=== PATIENT | female | born 1960 | race Caucasian/White ===

== ENCOUNTER 2019-02-10 09:17 | Day surgery (SDC) | payer BC ==
[2019-02-10] MEDS ORDERED: Ketorolac 30 MG/ML SDV IVPUSH ONE (09:18)
[2019-02-10] MEDS ORDERED: Ondansetron 4 MG/2 ML SDV IVPUSH ONE (09:18)
[2019-02-10] MEDS ORDERED: Dexamethasone 4 MG/ML 5 ML MDV IVPUSH ONE (09:18)
[2019-02-10] MEDS ORDERED: Succinylcholine 200 MG/10 ML MDV IV ONE (09:18)
[2019-02-10] MEDS ORDERED: fentaNYL 100 MCG/2 ML SDV IV ONE (09:18)
[2019-02-10] MEDS ORDERED: Lidocaine 2% 100 MG/5 ML Syringe IVPUSH ONE (09:18)
[2019-02-10] MEDS ORDERED: Propofol 200 MG/20 ML SDV IV ONE (09:18)
[2019-02-10] MEDS ORDERED: Lactated Ringers 1,000 ML IV ONE (09:18)
[2019-02-10] MEDS ORDERED: Rocuronium 50 MG/5 ML Vial IV ONE (09:18)
[2019-02-10] MEDS ORDERED: Midazolam 1 MG/ML 2 ML SDV IV ONE (09:18)
[2019-02-10] MEDS ORDERED: Acetaminophen 500 MG Tab PO ONE (10:30)
[2019-02-10] MEDS ORDERED: Sodium Chloride 0.9% 10 ML Syringe FLUSH PRN (10:30)
[2019-02-10] MEDS ORDERED: Lactated Ringers 1,000 ML IV SCH (10:30)
[2019-02-10] MEDS ORDERED: Gabapentin 300 MG Cap PO ONE (10:30)
[2019-02-10] MEDS ORDERED: EPINEPHrine 1 MG/ML SDV ONE (11:01)
[2019-02-10] MEDS ORDERED: Gentamicin 40 MG/ML 2 ML Vial ONE (11:01)
[2019-02-10] MEDS ORDERED: Bupivacaine 0.5%/EPINEPHrine 1:200,000 50 ML MDV INJECT ONE (11:02)
--- NOTE | 2019-02-10 11:38 | PCM.OPNOTE ---
- General Post-Op/Procedure Note Date of Surgery/Procedure: 02/10/19 Operative Procedure(s): left knee arthroscopy. partial medial and lateral menisectomy. patellar, tibial, and femoral chondroplasty Pre Op Diagnosis: medial and lateral meniscus tear Post-Op Diagnosis: Same Anesthesia Technique: General ET Tube Primary Surgeon: Chris Diggs Anesthesia Provider: Margie Sears EBL in mLs: 5 Complications: None Condition: Good
[2019-02-10] MEDS ORDERED: Acetaminophen/oxyCODONE 325-5 MG Tab PO PRN (13:12)
[2019-02-10] MEDS ORDERED: Ketorolac 30 MG/ML SDV IVPUSH PRN (13:14)
[2019-02-10 14:41] VITALS: BP 152/88; PULSE 76
--- NOTE | 2019-02-10 17:12 | OR ---
DATE OF OPERATION: 02/10/2019 SURGEON: Chris Diggs DO PREOPERATIVE DIAGNOSES: 1. Left knee lateral meniscus and medial meniscus tears. 2. Osteochondral defect, femoral condyle. POSTOPERATIVE DIAGNOSES: 1. Left knee lateral meniscus and medial meniscus tears. 2. Osteochondral defect, femoral condyle. 3. Chondromalacia, patella. 4. Chondromalacia, tibia and femur. PROCEDURES: 1. Left knee arthroscopy. 2. Partial medial and lateral meniscectomy. 3. Chondroplasty, patella, femur, and tibia. ANESTHESIA: General endotracheal intubation. FLUID: Lactated Ringer solution. ESTIMATED BLOOD LOSS: 5 mL. COMPLICATIONS: None. SPECIMEN: None. DISCHARGE DISPOSITION: Stable to PACU. HISTORY AND INDICATIONS FOR THE PROCEDURE: The patient was seen preoperatively in clinic. We did try nonoperative treatment, but she was in a great deal of pain. We did obtain preoperative imaging which confirmed medial and lateral meniscus tears. Risks and benefits of the procedure were explained to the patient. Informed consent was obtained. DETAILS OF PROCEDURE: The patient was seen preoperatively by myself and the anesthesia staff in the preoperative holding area where the operative site was marked. She was brought to the operative suite by Anesthesia staff where general anesthesia was administered. The right lower extremity was placed into a stirrup. The left lower extremity was placed into a thigh keys with a gel pad. A well-padded tourniquet was placed on the left thigh. The left lower extremity was then prepped and draped in a sterile manner. Time-out was called identifying the correct patient, correct procedure, and the correct site and antibiotics were begun within appropriate period of time. The left lower extremity was exsanguinated. Tourniquet was raised to 300 mmHg and taken down after closure. Lateral portal was first made and then the trocar was used to enter the joint and the knee was extended. We then inserted the camera. The patellofemoral space had considerable synovitis as well as grade 4 chondromalacia on the patella. Both gutters had evidence of synovitis present. I did use a lateral portal and then inserted my shaver and removed part of the infrapatellar fat pad and some synovitis in the medial and lateral compartments which did aid in visualization. The medial meniscus had a small posterior tear which were shaved and then used the ablation unit to stabilize it. The lateral meniscus had a large tear going from 11 to 4 o'clock. It had both radial and horizontal components. I spent a bit of time on this using the shaver to remove the diseased portions of the meniscus and then used an ablation unit to stabilize it. I then used the ablation unit on the distal femoral condyle in the lateral compartment as well as the tibia for grade 4 chondromalacia on both of these surfaces. The ACL was in good condition. Having accomplished the goals, I removed all of our instruments and then injected local anesthetic at the portals and into the knee and closed with [id number] interrupted 3-0 nylon sutures followed by Betadine-soaked Adaptic, sponges, and an Joseph wrap. The tourniquet was let down after closure with nylon. The patient was allowed to awaken from general anesthesia and taken to the PACU in stable condition. /[id number] JOJO/MISTY
== END 2019-02-10 14:00 | disposition home or self-care (01) ==
LOC: FB.SDS 09:17
PROVIDERS: ATTEND Orthopaedic Surgery
DX: S83.282A Other tear of lateral meniscus, current injury, left knee, initial encounter (principal); S83.242A Other tear of medial meniscus, current injury, left knee, initial encounter; M21.862 Other specified acquired deformities of left lower leg; M94.262 Chondromalacia, left knee; J44.9 Chronic obstructive pulmonary disease, unspecified; K21.9 Gastro-esophageal reflux disease without esophagitis; I10 Essential (primary) hypertension; E78.00 Pure hypercholesterolemia, unspecified
CPT/HCPCS: 29880; A9270; J0171; J0330; J0690; J1100; J1580; J1885; J2001; J2250; J2405; J2704; J3010; J3490; J7030; J7120

== ENCOUNTER 2019-10-03 10:13 | Emergency (ER) | payer BC ==
--- NOTE | 2019-10-03 10:24 | EDM.PDOC ---
ED HPI GENERAL MEDICAL PROBLEM - General Stated Complaint: TROUBLE BREATHING Time Seen by Provider: 10/03/19 11:29 Source of Information: Reports: Patient, RN Notes Reviewed History Limitations: Reports: No Limitations - History of Present Illness INITIAL COMMENTS - FREE TEXT/NARRATIVE: 59 yo F who presented to the ER with h/o worsening sob and chest congestion that started earlier today. Denied any h/o fever, cough. nO CHEST PAIN. Denied any sinus congestion. No h/o exposure to any COVID 19.No h/o recent travels. Patient denies any nausea, vomiting or abdominal pain. No Leg swelling. Presented to the ER due to worsening symptoms. Onset: Today Duration: Day(s): (started early today and seems to be getting worse), Getting Worse - Related Data Allergies Allergy/AdvReac Type Severity Reaction Status Date / Time albuterol Allergy Other Verified 02/09/19 14:30 Home Meds: Home Meds Aspirin 81 mg PO DAILY 02/09/19 [History] Lisinopril/Hydrochlorothiazide [Lisinopril-Hctz 20-12.5 mg Tab] 1 each PO DAILY 02/09/19 [History] atorvaSTATin Calcium [Atorvastatin Calcium] 20 mg PO DAILY 02/09/19 [History] Acetaminophen [Arthritis Pain] 1,300 mg PO ASDIRECTED 02/10/19 [History] Amoxicillin/Potassium Clav [Augmentin 875-125 Tablet] 1 ea PO BID 02/10/19 [ History] Ascorbic Acid [Vitamin C] 1,000 mg PO DAILY 02/10/19 [History] Multivitamin with Minerals [Multiple Vitamin] 1 mg PO DAILY 02/10/19 [History] diphenhydrAMINE HCL [Benadryl Allergy] 25 mg PO ASDIRECTED PRN 02/10/19 [History ] Azithromycin [Zithromax] 250 mg PO DAILY #6 tab 10/03/19 [Rx] predniSONE 40 mg PO WITHBREAKFAST #5 tab 10/03/19 [Rx] Past Medical History HEENT History: Reports: Impaired Vision, Sinusitis, Other (See Below) Cardiovascular History: Reports: High Cholesterol, Hypertension, NC Respiratory History: Reports: COPD Gastrointestinal History: Reports: Colon Polyp, GERD Genitourinary History: Reports: UTI, Recurrent Other Genitourinary History: DYSURIA 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 Other Musculoskeletal History: KNEE PAIN - Infectious Disease History Infectious Disease History: Reports: None - Past Surgical History HEENT Surgical History: Reports: Other (See Below) Other HEENT Surgeries/Procedures: NODULE REMOVED FROM VOICE BOX/VOCAL CHORDS Other Cardiovascular Surgeries/Procedures: NC PER HX. PT. DENIES GI Surgical History: Reports: Colonoscopy Female Surgical History: Reports: Hysterectomy, Salpingo-Oophorectomy, Tubal Ligation Social & Family History - Family History Family Medical History: Unobtainable ED ROS GENERAL - Review of Systems Review Of Systems: See Below Constitutional: Reports: No Symptoms HEENT: Reports: No Symptoms Respiratory: Reports: Shortness of Breath, Other (chest congestion) Cardiovascular: Reports: No Symptoms Endocrine: Reports: No Symptoms GI/Abdominal: Reports: No Symptoms : Reports: No Symptoms Musculoskeletal: Reports: No Symptoms Skin: Reports: No Symptoms Neurological: Reports: No Symptoms Psychiatric: Reports: No Symptoms Hematologic/Lymphatic: Reports: No Symptoms Immunologic: Reports: No Symptoms ED EXAM, GENERAL - Physical Exam Exam: See Below Exam Limited By: No Limitations General Appearance: Alert, WD/WN, No Apparent Distress Eye Exam: Bilateral Eye: EOMI, PERRL Ears: Normal External Exam, Normal Canal, Hearing Grossly Normal Ear Exam: Bilateral Ear: TM normal Nose: Normal Inspection, Normal Mucosa, No Blood Throat/Mouth: Normal Inspection, Normal Lips, Normal Teeth, Normal Gums, Normal Oropharynx Head: Atraumatic, Normocephalic Neck: Normal Inspection, Supple, Non-Tender Respiratory/Chest: No Respiratory Distress, Lungs Clear, Normal Breath Sounds Cardiovascular: Normal Peripheral Pulses, Regular Rate, Rhythm, No Edema GI/Abdominal: Normal Bowel Sounds, Soft, Non-Tender, No Organomegaly, No Distention Extremities: Normal Inspection, Normal Range of Motion, Non-Tender, No Pedal Edema Neurological: Alert, Oriented, CN II-XII Intact, Normal Cognition, Normal Gait Skin Exam: Warm Course - Vital Signs Last Recorded V/S: Last Vital Signs Temp 36.2 C 10/03/19 10:13 Pulse 106 H 10/03/19 10:13 Resp 18 10/03/19 10:13 BP 144/105 H 10/03/19 10:13 Pulse Ox 99 10/03/19 10:13 - Orders/Labs/Meds Orders: Active Orders 24 hr Category Date Time Status Ang Chest [CT] Stat Exams 10/03/19 12:57 Taken Labs: Laboratory Tests 10/03/19 10/03/19 10/03/19 Range/Units 10:51 10:51 10:51 WBC 6.2 (4.5-12.0) X10-3/uL RBC 4.48 (3.23-5.20) x10(6)uL Hgb 13.9 (11.5-15.5) g/dL Hct 42.5 (30.0-51.3) % MCV 94.8 (80-96) fL MCH 31.0 (27.7-33.6) pg MCHC 32.7 (32.2-35.4) g/dL RDW 12.5 (11.5-15.5) % Plt Count 305 (125-369) X10(3)uL MPV 7.4 (7.4-10.4) fL Neut % (Auto) 69.9 (46-82) % Lymph % (Auto) 22.5 (13-37) % Jasper % (Auto) 5.3 (4-12) % Eos % (Auto) 2 (1.0-5.0) % Baso % (Auto) 1 (0-2) % Neut # (Auto) 4.4 (1.6-8.3) # Lymph # (Auto) 1.4 (0.6-5.0) # Jasper # (Auto) 0.3 (0.0-1.3) # Eos # (Auto) 0.1 (0.0-0.8) # Baso # (Auto) 0.0 (0.0-0.2) # D-Dimer, Quantitative (0.0-0.59) mg/LFEU Sodium 139 (135-145) mmol/L Potassium 3.6 (3.5-5.3) mmol/L Chloride 103 (100-110) mmol/L Carbon Dioxide 25 (21-32) mmol/L BUN 14 (7-18) mg/dL Creatinine 0.8 (0.55-1.02) mg/dL Est Cr Clr Drug Dosing 77.18 mL/min Estimated GFR (MDRD) > 60 (>60) BUN/Creatinine Ratio 17.5 (9-20) Glucose 189 H (80-116) mg/dL Calcium 9.5 (8.6-10.2) mg/dL Total Bilirubin 0.5 (0.1-1.3) mg/dL AST 24 (5-25) IU/L ALT 43 H (12-36) U/L Alkaline Phosphatase 113 H (56-112) IU/L Troponin I 6.5 (4.0-60.3) pg/mL C-Reactive Protein (0.5-0.9) mg/dL NT-Pro-B Natriuret Pep (<=125) pg/mL Total Protein 7.5 (6.0-8.0) g/dL Albumin 3.7 (3.2-4.6) g/dL Globulin 3.8 g/dL Albumin/Globulin Ratio 1.0 10/03/19 10/03/19 Range/Units 10:51 10:51 WBC (4.5-12.0) X10-3/uL RBC (3.23-5.20) x10(6)uL Hgb (11.5-15.5) g/dL Hct (30.0-51.3) % MCV (80-96) fL MCH (27.7-33.6) pg MCHC (32.2-35.4) g/dL RDW (11.5-15.5) % Plt Count (125-369) X10(3)uL MPV (7.4-10.4) fL Neut % (Auto) (46-82) % Lymph % (Auto) (13-37) % Jasper % (Auto) (4-12) % Eos % (Auto) (1.0-5.0) % Baso % (Auto) (0-2) % Neut # (Auto) (1.6-8.3) # Lymph # (Auto) (0.6-5.0) # Jasper # (Auto) (0.0-1.3) # Eos # (Auto) (0.0-0.8) # Baso # (Auto) (0.0-0.2) # D-Dimer, Quantitative 0.71 H (0.0-0.59) mg/LFEU Sodium (135-145) mmol/L Potassium (3.5-5.3) mmol/L Chloride (100-110) mmol/L Carbon Dioxide (21-32) mmol/L BUN (7-18) mg/dL Creatinine (0.55-1.02) mg/dL Est Cr Clr Drug Dosing mL/min Estimated GFR (MDRD) (>60) BUN/Creatinine Ratio (9-20) Glucose (80-116) mg/dL Calcium (8.6-10.2) mg/dL Total Bilirubin (0.1-1.3) mg/dL AST (5-25) IU/L ALT (12-36) U/L Alkaline Phosphatase (56-112) IU/L Troponin I (4.0-60.3) pg/mL C-Reactive Protein 1.1 H (0.5-0.9) mg/dL NT-Pro-B Natriuret Pep 36 (<=125) pg/mL Total Protein (6.0-8.0) g/dL Albumin (3.2-4.6) g/dL Globulin g/dL Albumin/Globulin Ratio Meds: Medications Discontinued Medications Generic Name Dose Route Start Last Admin Trade Name Jose PRN Reason Stop Dose Admin Iopamidol 100 ml 10/03/19 12:20 10/03/19 12:38 Isovue-370 (76%) IV 10/03/19 12:21 90 ml ONETIME ONE Administration Departure - Departure Time of Disposition: 13:23 Disposition: Home, Self-Care 01 Condition: Good Clinical Impression: Pneumonia, Bronchitis Prescriptions: Azithromycin [Zithromax] 250 mg PO DAILY #6 tab predniSONE 40 mg PO WITHBREAKFAST #5 tab Instructions: Azithromycin tablets, Prednisone tablets, Acute Bronchitis, Adult Referrals: Armando Moore MD [Primary Care Provider] - Forms: ED Department Discharge Additional Instructions: Follow with PCP Return if symptoms worsen Call your Physician or Return to Emergency Department if: * Your condition worsens in any way. * You develop fever greater than 100.4. * You have vomitting that does not stop with medications. * You have pain that is not controlled with medications. Sepsis Event Note - Focused Exam Vital Signs: Vital Signs Temp Pulse Resp BP Pulse Ox 10/03/19 10:13 36.2 C 106 H 18 144/105 H 99 Date Exam was Performed: 10/03/19 Time Exam was Performed: 13:40 - Problem List & Annotations (1) Pneumonia SNOMED Code(s): 073029601 Code(s): J18.9 - PNEUMONIA, UNSPECIFIED ORGANISM Status: Acute Current Visit: Yes (2) Bronchitis SNOMED Code(s): 10610187 Code(s): J40 - BRONCHITIS, NOT SPECIFIED ACUTE OR CHRONIC Status: Acute Current Visit: Yes - My Orders Last 24 Hours: My Active Orders 10/03/19 12:57 Ang Chest [CT] Stat - Assessment/Plan Last 24 Hours: My Active Orders 10/03/19 12:57 Ang Chest [CT] Stat
[2019-10-03] MEDS ORDERED: Iopamidol 755 Mg/ML 100 ML Bottle IV ONE (12:20)
--- NOTE | 2019-10-03 13:33 | CR ---
INDICATION: Short of breath. CHEST TWO VIEWS: PA and lateral views of the chest 10/03/2019-no comparisons. The heart appeared normal in size transversely, but showed evidence of left ventricular enlargement on the lateral view. The aorta is slightly tortuous with some calcification in the arch. Flattened diaphragms leads, prominent AV diameter and hyperaeration suggests COPD. The density at the left cardiac margin may represent unusual epicardial fat pad. A small neoplasm is difficult to exclude in that area however. If old films are available for comparison, they may be helpful. Bony structures appear to be grossly intact. Evidence of exogenous obesity is noted. IMPRESSION: 1. No definite acute process. 2. COPD. 3. ASHD with LVE. 4. Exogenous obesity. 5. Cannot exclude a small nodular density at the left heart border-old films may be helpful for further evaluation. If not old films are available for comparison, either follow-up chest x-rays or possibly CT without and with IV contrast may be helpful. MTDD
[2019-10-03 14:25] VITALS: BP 141/89; PULSE 80
--- NOTE | 2019-10-03 14:32 | CT ---
INDICATION: Short of breath. COMPUTERIZED TOMOGRAPHY ANGIOGRAPHY OF THE CHEST WITH CONTRAST: Spiral 1.25 mm axial sections were obtained through the chest with 90 cc Isovue 370 at 3 cc per second with sagittal and coronal reconstructions, 10/03/2019 and compared with 08/11/12. Total exam DLP was 1030.42 mGy-cm. The heart appears to be at the upper limits of normal in size. No mediastinal mass was identified. Mediastinal lymphadenopathy is mild and nonspecific. The upper abdomen included on the study suggested somewhat diminished density of the liver which may be on the basis of fatty liver, but should be correlated clinically. The upper abdominal included the study was unremarkable. A focal area of consolidation and/or atelectasis is suggested in the lingula, this may be on the basis of pneumonia and should be correlated clinically. It may be on the basis of fibrosis as well. Heavy markings in the middle lobe and left lower lobe at the diaphragm suggest mild degree of pulmonary fibrosis. No evidence of pulmonary emboli could be identified. IMPRESSION: 1. No evidence of pulmonary emboli. 2. Focal area of infiltrate and/or atelectasis at the lingula with some very minimal similar change at the middle lobe, possibly fibrotic in nature, although minimal pneumonia and/or atelectasis may be present, especially in the lingula. 3. Slight loss of vertebral body volume midthoracic levels x2, compatible with previous minimal compressions of indeterminate age. Report was called to Dr. Peck at [address] [facility] [place]
== END 2019-10-03 13:35 | disposition home or self-care (01) ==
LOC: FB.ED 10:13
DX: J18.9 Pneumonia, unspecified organism (principal); J40 Bronchitis, not specified as acute or chronic; E78.00 Pure hypercholesterolemia, unspecified; I10 Essential (primary) hypertension; I25.2 Old myocardial infarction; J44.9 Chronic obstructive pulmonary disease, unspecified; Z88.8 Allergy status to other drugs, medicaments and biological substances; Z79.82 Long term (current) use of aspirin; Z79.899 Other long term (current) drug therapy
CPT/HCPCS: 36415; 71046; 71275; 80053; 83880; 84484; 85025; 85379; 86140; 99285; Q9967

== ENCOUNTER 2021-10-07 08:33 | Day surgery (SDC) | payer BC ==
[~2021-10-07 08:33] MED LIST: Lactated Ringers 1,000 ML IV SCH; Sodium Chloride 0.9% 10 ML Syringe FLUSH PRN
[2021-10-07] MEDS ORDERED: Propofol 200 MG/20 ML SDV IV ONE (08:34)
[2021-10-07 11:13] VITALS: BP 129/85; PULSE 68
== END 2021-10-07 11:00 | disposition home or self-care (01) ==
LOC: FB.SDS 08:33
PROVIDERS: ATTEND Surgery
DX: Z12.11 Encounter for screening for malignant neoplasm of colon (principal); K62.1 Rectal polyp; K63.5 Polyp of colon; J44.9 Chronic obstructive pulmonary disease, unspecified; E66.01 Morbid (severe) obesity due to excess calories; M79.7 Fibromyalgia; K21.9 Gastro-esophageal reflux disease without esophagitis; Z88.8 Allergy status to other drugs, medicaments and biological substances; Z79.84 Long term (current) use of oral hypoglycemic drugs; Z79.51 Long term (current) use of inhaled steroids; Z87.891 Personal history of nicotine dependence; Z86.010 Personal history of colon polyps; Z98.890 Other specified postprocedural states; Z68.41 Body mass index [BMI] 40.0-44.9, adult
CPT/HCPCS: 00811; 45384; 45385; 82947; 88305; J2704; J7120

== ENCOUNTER 2024-06-08 23:03 | Emergency (ER) | payer MEDICARE, OTHER ==
[2024-06-08 23:39] LABS: BASOPHILS ABSOLUTE AUTO 0.1 x10-3/uL (0.0-0.1); BASOPHILS PERCENT AUTO 1.5 % (0.2-1.5); EOSINOPHILS ABSOLUTE AUTO 0.2 x10-3/uL (0.0-0.8); EOSINOPHILS PERCENT AUTO 3.1 % (0.6-8.1); HEMATOCRIT 40.9 % (34.2-48.2); LYMPHOCYTES ABSOLUTE AUTO 1.6 x10-3/uL (1.0-4.4); MEAN CORPUSCULAR HGB CONC 34.2 g/dL (31.9-34.8); MEAN CORPUSCULAR VOLUME 93.7 fL (76.7-100.5); MEAN PLATELET VOLUME 7.7 fL (7.1-12.4); MONOCYTES ABSOLUTE AUTO 0.5 x10-3/uL (0.3-1.0); MONOCYTES PERCENT AUTO 8.5 % (4.4-15.7); NEUTROPHILS ABSOLUTE AUTO 3.3 x10-3/uL (1.5-6.3); NEUTROPHILS PERCENT AUTO 57.9 % (30.8-76.2); PLATELET COUNT,PLT 285 x10(3)uL (151-488); RED BLOOD CELL COUNT 4.37 x10(6)uL (3.60-5.20); RED CELL DISTRIBUTION WIDTH 13.1 % (12.3-16.5); WHITE BLOOD CELL COUNT,WBC 5.7 x10-3/uL (3.0-10.3)
[2024-06-08 23:48] LABS: INR 0.93 (1.00-1.24); PROTHROMBIN TIME 9.8 sec (9.0-11.1)
[2024-06-08] MEDS: LORazepam 2 MG/ML SDV IVPUSH ONE (23:51)
[2024-06-08 23:57] LABS: A/G RATIO 0.8; ALANINE AMINOTRANSFERASE,ALT 41 U/L (12-36); ALBUMIN 3.2 g/dL (3.2-4.6); ALKALINE PHOSPHATASE 95 IU/L (56-112); ASPARTATE AMNIOTRANSFERASE,AST 24 IU/L (5-25); BILIRUBIN TOTAL 0.3 mg/dL (0.1-1.3); BLOOD UREA NITROGEN,BUN 13 mg/dL (7-18); BUN/CREATININE RATIO 14.4 (9-20); CALCIUM 8.9 mg/dL (8.6-10.2); CARBON DIOXIDE,CO2 25 mmol/L (21-32); CHLORIDE,CL 101 mmol/L (100-110); CREATINE KINASE,CK 99 IU/L (60-160); CREATININE 0.9 mg/dL (0.55-1.02); EST CRCL DRUG DOSING (CG) 62.86 mL/min; ESTIMATED GFR 71 mL/min (>60); GLUCOSE RANDOM 188 mg/dL (80-116); POTASSIUM,K 3.6 mmol/L (3.5-5.3); PROTEIN TOTAL,TP 7.3 g/dL (6.0-8.0); SODIUM,NA 136 mmol/L (135-145)
[2024-06-09] MEDS: Iopamidol 755 Mg/ML 100 ML Bottle IV SCH (01:29)
[2024-06-09 03:06] VITALS: BP 156/75; PULSE 97
== END 2024-06-09 03:00 | disposition home or self-care (01) ==
LOC: FB.ED 23:03
DX: R06.02 Shortness of breath (principal); I10 Essential (primary) hypertension; I25.2 Old myocardial infarction; E78.00 Pure hypercholesterolemia, unspecified; J44.9 Chronic obstructive pulmonary disease, unspecified; Z90.710 Acquired absence of both cervix and uterus; Z88.8 Allergy status to other drugs, medicaments and biological substances; Z79.84 Long term (current) use of oral hypoglycemic drugs; Z79.899 Other long term (current) drug therapy
CPT/HCPCS: 36415; 71045; 71275; 80053; 82550; 84484; 85025; 85379; 85610; 93005; 96374; 99285; J2060; Q9967; 93010; 99284